=== PATIENT | male | born 1980 | race African-American/Black ===

== ENCOUNTER 2016-11-28 20:02 | Inpatient (IN) | payer SELFPAY ==
[~2016-11-28] VITALS: Ht 162.6 cm; Wt 65.3 kg
[2016-11-28 20:43] LABS: BASOPHILS 0.7 % (0-2); EOSINOPHILS 0.2 % (0-7); HEMATOCRIT 35.5 % (42.0-54.0); HEMOGLOBIN 12.8 g/dL (13.5-17.5); IMMATURE GRANULOCYTES 7.1 % (0-5); LYMPHOCYTES 8.7 % (15-50); MCH 26.8 pg (26.0-34.0); MCHC 36.1 g/dL (31.0-37.0); MCV 74.4 fL (80.0-100.0); MONOCYTES 6.3 % (2-11); PLATELET COUNT 56 10x3/uL (130-400); RBC 4.77 10x6/uL (4.20-6.10); RDW 15.4 % (11.5-14.5); WBC 14.2 10x3/uL (4.8-10.8)
[2016-11-28 20:58] LABS: ALBUMIN 4.3 g/dL (3.4-5.0); ALKALINE PHOSPHATASE 78 U/L (46-116); ALT (SGPT) 39 U/L (10-68); CALC OSMOLALITY 279 mosm/kg (275-300); CALCIUM 8.9 mg/dL (8.5-10.1); CARBON DIOXIDE 24.5 mmol/L (21.0-32.0); CHLORIDE - SERUM 102 mmol/L (98-107); CREATININE - SERUM 0.8 mg/dL (0.6-1.3); GLUCOSE 130 mg/dL (74-106); POTASSIUM - SERUM 3.7 mmol/L (3.5-5.1); PROTEIN - SERUM 7.7 g/dL (6.4-8.2); SODIUM 139 mmol/L (136-145); UREA NITROGEN 13 mg/dL (7-18); eGFR NON AFRICAN AMERICAN > 90 mL/min (90-120)
[2016-11-28 21:08] LABS: CKMB 0.3 U/L (0.0-3.6); CREATINE KINASE 126 UL (21-232); TROPONIN-I 0.029 ng/mL (0.000-0.060)
[2016-11-28 21:17] LABS: PLATELET ESTIMATE DECREASED
[2016-11-28 21:18] LABS: C-REACTIVE PROTEIN 0.5 mg/dL (0.0-0.9)
[2016-11-28 21:48] LABS: APPEARANCE CLEAR (CLEAR); BILIRUBIN NEGATIVE (NEGATIVE); COLOR YELLOW (YELLOW); GLUCOSE NEGATIVE (NEGATIVE); KETONE NEGATIVE (NEGATIVE); LEUKOCYTE ESTERASE NEGATIVE (NEGATIVE); NITRITE NEGATIVE (NEGATIVE); PROTEIN TRACE mg/dL (NEGATIVE); SPECIFIC GRAVITY 1.015 (1.005-1.020); UROBILINOGEN NORMAL (NORMAL)
[2016-11-28 21:52] LABS: UDS - AMPHET NEGATIVE QUAL (NEGATIVE); UDS - BARB NEGATIVE QUAL (NEGATIVE); UDS - BENZO NEGATIVE QUAL (NEGATIVE); UDS - COCAINE NEGATIVE QUAL (NEGATIVE); UDS - METH NEGATIVE QUAL (NEGATIVE); UDS - OPIATE NEGATIVE QUAL (NEGATIVE); UDS - PCP NEGATIVE QUAL (NEGATIVE); UDS - THC POSITIVE QUAL (NEGATIVE)
[2016-11-28 21:54] LABS: BACTERIA FEW /hpf (NONE SEEN); EPITHELIAL CELLS OCC /hpf (0-5); MUCUS <1+ /lpf (NONE SEEN); RED CELLS - URINE 0-5 /hpf (0-5); WHITE CELLS - URINE OCC /hpf (0-5)
[2016-11-28 21:55] LABS: HYALINE CAST OCC /lpf (NONE SEEN); WAXY CAST RARE /lpf (NONE SEEN)
[2016-11-28 22:24] LABS: INR 1.24 (0.85-1.17); PROTIME 15.5 SECONDS (11.6-15.0)
[2016-11-28 22:40] LABS: D-DIMER-QUANTITATIVE 17.53 ug/mLFEU (0.20-0.54)
--- NOTE | 2016-11-29 02:15 | NUR ---
REC FROM ER VIA STRETCHER. TRANSFERED HIMSELF FROM STRETCHER TO BED WITHOUT ASSISTANCE. ALERT/ORIENTED X 4. DENIES PAIN. MORPHINE ADMINISTER IN ER FOR CHEST PAIN. HE IS SLIGHTLY DROWSY, BUT ABLE TO ANSWER QUESTIONS. IV IN L HAND WITH NS INFUSING STARTED IN ER. TELEMETRY ORDERED. REQUESTED A SANDWICH AND SODA. ORIENTED TO ROOM AND CALL LIGHT. A FRIEND IS PRESENT WITH HIM.
[2016-11-29 03:18] VITALS: BP 171/107; BMI 24.8
--- NOTE | 2016-11-29 03:46 | NUR ---
INFORMED DR MILLS VIA PHONE RE: PATIENT'S ELEVATED B/P 171/101. STATED HE WILL TX IN THE MORNING.
[2016-11-29 05:55] VITALS: BP 171/105
--- NOTE | 2016-11-29 06:27 | NUR ---
RESTING WITH EYES CLOSED. NO S/S OF PAIN OR DISCOMFORT. HAS A ROUND SOFT LUMP ON LEFT SIDE OF FOREHEAD APPROX 3 CM X 3 CM. STATED EARLIER THAT IT COMES AND GOES AND IS NOT PAINFUL.
[2016-11-29 07:05] LABS: BASOPHILS 0.4 % (0-2); EOSINOPHILS 0.4 % (0-7); HEMOGLOBIN 11.9 g/dL (13.5-17.5); IMMATURE GRANULOCYTES 4.8 % (0-5); LYMPHOCYTES 14.7 % (15-50); MCH 26.8 pg (26.0-34.0); MCHC 36.1 g/dL (31.0-37.0); MCV 74.3 fL (80.0-100.0); MONOCYTES 5.9 % (2-11); NEUTROPHILS 73.8 % (40-80); RBC 4.44 10x6/uL (4.20-6.10); RDW 15.2 % (11.5-14.5)
[2016-11-29 07:10] LABS: WBC 6.7 10x3/uL (4.8-10.8)
[2016-11-29 07:12] LABS: PLATELET COUNT 41 10x3/uL (130-400)
[2016-11-29 07:26] LABS: ALBUMIN 3.5 g/dL (3.4-5.0); ALKALINE PHOSPHATASE 74 U/L (46-116); ALT (SGPT) 42 U/L (10-68); CALC OSMOLALITY 270 mosm/kg (275-300); CALCIUM 8.3 mg/dL (8.5-10.1); CARBON DIOXIDE 26.8 mmol/L (21.0-32.0); CHLORIDE - SERUM 102 mmol/L (98-107); CREATINE KINASE 85 UL (21-232); GLUCOSE 113 mg/dL (74-106); POTASSIUM - SERUM 3.8 mmol/L (3.5-5.1); PROTEIN - SERUM 6.8 g/dL (6.4-8.2); SODIUM 135 mmol/L (136-145); TROPONIN-I 0.039 ng/mL (0.000-0.060); UREA NITROGEN 12 mg/dL (7-18); eGFR NON AFRICAN AMERICAN 89 mL/min (90-120)
[2016-11-29 08:00] VITALS: BP 170/103
[2016-11-29 08:12] LABS: ERYTHROCYTE SEDIMENTATION RATE 2 mm/hr (0-15)
--- NOTE | 2016-11-29 09:17 | NUR ---
TELEMETRY SR. IV PATENT. NPO FOR US AND CT ABD. CALL LIGHT IN REACT. WILL MONITOR NEEDS.
--- NOTE | 2016-11-29 10:58 | NUR ---
CT AND US ABD COMPLETED. WILL MONITOR.
[2016-11-29 12:38] VITALS: BP 158/98
[2016-11-29 16:33] VITALS: BP 158/98
--- NOTE | 2016-11-29 19:00 | NUR ---
INITIAL ROUNDS MADE. PT SITTING UP IN BED WATCHING TV. NO NEEDS OR C/O AT THIS TIME. REQUESTED AND GIVEN APPLE JUICE. WILL CONT TO MONITOR.
[2016-11-29 21:30] VITALS: BP 162/98
[2016-11-30 02:21] VITALS: BP 151/91
[2016-11-30 05:57] LABS: BASOPHILS 0.2 % (0-2); EOSINOPHILS 0.6 % (0-7); HEMOGLOBIN 10.7 g/dL (13.5-17.5); IMMATURE GRANULOCYTES 1.8 % (0-5); LYMPHOCYTES 26.6 % (15-50); MCH 26.5 pg (26.0-34.0); MCHC 35.7 g/dL (31.0-37.0); MCV 74.3 fL (80.0-100.0); MONOCYTES 6.5 % (2-11); NEUTROPHILS 64.3 % (40-80); RBC 4.04 10x6/uL (4.20-6.10); RDW 15.2 % (11.5-14.5); WBC 5.1 10x3/uL (4.8-10.8)
[2016-11-30 06:04] LABS: PLATELET COUNT 23 10x3/uL (130-400)
[2016-11-30 06:28] LABS: ALBUMIN 3.3 g/dL (3.4-5.0); ALKALINE PHOSPHATASE 63 U/L (46-116); ALT (SGPT) 34 U/L (10-68); BILIRUBIN - TOTAL 1.11 mg/dL (0.2-1.3); CALC OSMOLALITY 279 mosm/kg (275-300); CALCIUM 8.5 mg/dL (8.5-10.1); CARBON DIOXIDE 24.7 mmol/L (21.0-32.0); CHLORIDE - SERUM 107 mmol/L (98-107); CREATININE - SERUM 0.8 mg/dL (0.6-1.3); GLUCOSE 94 mg/dL (74-106); POTASSIUM - SERUM 3.8 mmol/L (3.5-5.1); PROTEIN - SERUM 6.5 g/dL (6.4-8.2); SODIUM 141 mmol/L (136-145); UREA NITROGEN 9 mg/dL (7-18); eGFR NON AFRICAN AMERICAN > 90 mL/min (90-120)
[2016-11-30 06:34] VITALS: BP 153/86
[2016-11-30 08:14] VITALS: BP 145/98
--- NOTE | 2016-11-30 10:35 | NUR ---
TELEMETRY SR. RESTS IN BED WITH EYES CLOSED. IV PATENT. CALL LIGHT IN REACH. WILL CONT. PLAN OF CARE.
[2016-11-30 11:02] VITALS: Ht 162.6 cm; Wt 65.3 kg
[2016-11-30 12:00] VITALS: BP 146/93
--- NOTE | 2016-11-30 13:50 | NUR ---
SCDS ORDERED FOR PT AND APPLIED BILAT. PT IS AMBULATORY BUT STATES "YES ID LIKE TO WEAR THEM" NO FURTHER NEEDS. WILL CTM.
[2016-11-30 16:00] VITALS: BP 154/98
--- NOTE | 2016-11-30 19:00 | NUR ---
INITIAL ROUNDS MADE. PT SITTING UP IN BED WATCHING TV WITH FAMILY IN ROOM. DENIES NEEDS OR C/O AT THIS TIME. CALL LIGHT IN REACH. WILL CONT TO MONITOR.
[2016-11-30 20:39] VITALS: BP 156/85
--- NOTE | 2016-11-30 20:59 | NUR ---
HS MEDS GIVEN WTHOUT DIFFICULTY. CONT TO MONITOR.
[2016-12-01 00:47] VITALS: BP 124/79
[2016-12-01 04:56] VITALS: BP 142/75
[2016-12-01 05:54] LABS: BASOPHILS 0 % (0-2); EOSINOPHILS 0 % (0-7); HEMATOCRIT 31.3 % (42.0-54.0); HEMOGLOBIN 11.6 g/dL (13.5-17.5); IMMATURE GRANULOCYTES 1.5 % (0-5); LYMPHOCYTES 19.6 % (15-50); MCH 27.2 pg (26.0-34.0); MCHC 37.1 g/dL (31.0-37.0); MCV 73.3 fL (80.0-100.0); MONOCYTES 5.1 % (2-11); NEUTROPHILS 73.8 % (40-80); RBC 4.27 10x6/uL (4.20-6.10); RDW 15.3 % (11.5-14.5); WBC 3.9 10x3/uL (4.8-10.8)
[2016-12-01 06:15] LABS: ALBUMIN 3.7 g/dL (3.4-5.0); ALKALINE PHOSPHATASE 64 U/L (46-116); BILIRUBIN - TOTAL 1.07 mg/dL (0.2-1.3); CALCIUM 9.3 mg/dL (8.5-10.1); CHLORIDE - SERUM 104 mmol/L (98-107); CREATININE - SERUM 0.7 mg/dL (0.6-1.3); POTASSIUM - SERUM 4.2 mmol/L (3.5-5.1); PROTEIN - SERUM 7.4 g/dL (6.4-8.2); SODIUM 139 mmol/L (136-145); eGFR NON AFRICAN AMERICAN > 90 mL/min (90-120)
[2016-12-01 06:18] LABS: ALT (SGPT) 25 U/L (10-68); CALC OSMOLALITY 281 mosm/kg (275-300); GLUCOSE 155 mg/dL (74-106); UREA NITROGEN 16 mg/dL (7-18)
--- NOTE | 2016-12-01 06:25 | NUR ---
LYING IN BED RESTING WELL WITH EYES CLOSED, CALL LIGHT IN REACH. WILL CONT TO MONITOR.
[2016-12-01 06:28] LABS: PLATELET COUNT 30 10x3/uL (130-400)
[2016-12-01 08:57] VITALS: BP 161/95
[2016-12-01 09:17] LABS: HAPTOGLOBIN <10 mg/dL (34-200)
--- NOTE | 2016-12-01 10:52 | NUR ---
TELEMETRY SR. NO NEEDS VOICED. CALL LIGHT IN REACH. WILL CONT. PLAN OF CARE.
[2016-12-01 12:00] VITALS: BP 136/89
[2016-12-01 13:21] LABS: HEPATITIS C ANTIBODY 0.1 (0.0-0.9)
[2016-12-01 16:00] VITALS: BP 159/80
--- NOTE | 2016-12-01 19:42 | NUR ---
RESUMED CARE OF PT, LYING IN BED RESPIRATIONS EVEN AND UNLABORED ON ROOMA IR. 71 SR ON TELEMETRY. LEFT HAND SALINE LOCKED. CALL LIGHT IN REACH. NO NEEDS NOTED AT THIS TIME, WILL CONTINUE TO MONITOR. SEE NURSE ASSESSMENT.
[2016-12-01 20:00] VITALS: BP 154/88
[2016-12-02] VITALS: BP 169/97
[2016-12-02 04:00] VITALS: BP 133/78
[2016-12-02 05:39] LABS: BASOPHILS 0.2 % (0-2); EOSINOPHILS 0.2 % (0-7); HEMATOCRIT 31.2 % (42.0-54.0); HEMOGLOBIN 11.3 g/dL (13.5-17.5); IMMATURE GRANULOCYTES 0.9 % (0-5); LYMPHOCYTES 20.1 % (15-50); MCH 26.7 pg (26.0-34.0); MCHC 36.2 g/dL (31.0-37.0); MCV 73.6 fL (80.0-100.0); MONOCYTES 5.5 % (2-11); NEUTROPHILS 73.1 % (40-80); RBC 4.24 10x6/uL (4.20-6.10); RDW 15.1 % (11.5-14.5)
[2016-12-02 05:40] LABS: PLATELET COUNT 39 10x3/uL (130-400)
[2016-12-02 05:59] LABS: ALBUMIN 3.7 g/dL (3.4-5.0); ALKALINE PHOSPHATASE 57 U/L (46-116); ALT (SGPT) 28 U/L (10-68); BILIRUBIN - TOTAL 0.99 mg/dL (0.2-1.3); CALC OSMOLALITY 281 mosm/kg (275-300); CALCIUM 9.4 mg/dL (8.5-10.1); CARBON DIOXIDE 27.8 mmol/L (21.0-32.0); CHLORIDE - SERUM 104 mmol/L (98-107); CREATININE - SERUM 0.8 mg/dL (0.6-1.3); GLUCOSE 128 mg/dL (74-106); POTASSIUM - SERUM 4.2 mmol/L (3.5-5.1); PROTEIN - SERUM 7.2 g/dL (6.4-8.2); SODIUM 139 mmol/L (136-145); UREA NITROGEN 17 mg/dL (7-18); eGFR NON AFRICAN AMERICAN > 90 mL/min (90-120)
--- NOTE | 2016-12-02 06:36 | NUR ---
NO CHANGES FROM PREVIOUS ASSESSMENT, CALL LIGHT IN REACH.
--- NOTE | 2016-12-02 07:36 | NUR ---
ASSESSMENT COMPLETED. TELEMERTY SHOWS SB WITH A HEARTATE OF 50. ON ROOM AIR WITH. SL TO LEFT HAND, PATENT. SR UP WITH CALL LIGHT IN REACH WILL MONITOR
[2016-12-02 07:53] VITALS: BP 142/87
[2016-12-02 11:19] LABS: ANGIOTENSIN CONVERTING ENZYME 46 U/L (14-82)
--- NOTE | 2016-12-02 11:38 | NUR ---
PATIENT IN STREET CLOTHES LAYING ON THE BED. STATES THAT HE IS FOR A BONE MARROW BX TODAY AROUND 3. ON HEART MONITOR SHOWING SR, HR 70. DENIES ANY CHEST PAIN OR SHORTNESS OF BREATH.
[2016-12-02 11:51] VITALS: BP 138/83
--- NOTE | 2016-12-02 13:42 | NUR ---
Nutrition follow-up: Diet: Regular PO intake 100% of most meals Labs reviewed Wt: 143# RDN following.
--- NOTE | 2016-12-02 15:30 | NUR ---
AWAITING TEST. DENIES ANY NEEDS. CALL LIGHTIN REACH WITH SR UP
[2016-12-02 15:37] VITALS: BP 151/97
[2016-12-02 16:19] LABS: HGB - A2 5.2 % (0.7-3.1); HGB - C 45.3 % (0.0); HGB - INTERPRETATION Note: (()); HGB - S 49.5 % (0.0); HGB - SOLUBILITY Positive (Negative)
[2016-12-02 19:00] VITALS: BP 173/101
--- NOTE | 2016-12-02 19:40 | NUR ---
RESUMED CARE OF PT, LYING IN BED RESPIRATIONS EVEN AND UNLABORED ON ROOM AIR. 69 SR ON TELEMETRY, NO NEEDS VOICED AT THIS TIME. CALL LIGHT IN REACH. WILL CONTINUE TO MONITOR. SEE NURSE ASSESSMENT.
--- NOTE | 2016-12-02 22:21 | NUR ---
DR. MILLS PAGED FOR PAIN MEDICATION FOR RIGHT HIP. AWAITING CALL BACK.
--- NOTE | 2016-12-03 01:01 | NUR ---
CALL LIGHT IN REACH, WILL CONTINUE WITH PLAN OF CARE.
[2016-12-03 04:00] VITALS: BP 144/80
[2016-12-03 06:06] LABS: BASOPHILS 0.2 % (0-2); EOSINOPHILS 0.3 % (0-7); HEMATOCRIT 33.7 % (42.0-54.0); HEMOGLOBIN 12.3 g/dL (13.5-17.5); IMMATURE GRANULOCYTES 1.2 % (0-5); LYMPHOCYTES 26.9 % (15-50); MCH 26.7 pg (26.0-34.0); MCHC 36.5 g/dL (31.0-37.0); MCV 73.1 fL (80.0-100.0); NEUTROPHILS 62.4 % (40-80); RBC 4.61 10x6/uL (4.20-6.10); RDW 15.2 % (11.5-14.5); WBC 10.1 10x3/uL (4.8-10.8)
[2016-12-03 06:14] LABS: ALKALINE PHOSPHATASE 62 U/L (46-116); ALT (SGPT) 31 U/L (10-68); CALC OSMOLALITY 280 mosm/kg (275-300); CALCIUM 9.3 mg/dL (8.5-10.1); CARBON DIOXIDE 27.6 mmol/L (21.0-32.0); CHLORIDE - SERUM 101 mmol/L (98-107); CREATININE - SERUM 0.9 mg/dL (0.6-1.3); GLUCOSE 96 mg/dL (74-106); PLATELET COUNT 42 10x3/uL (130-400); PROTEIN - SERUM 7.6 g/dL (6.4-8.2); SODIUM 140 mmol/L (136-145); UREA NITROGEN 17 mg/dL (7-18); eGFR NON AFRICAN AMERICAN > 90 mL/min (90-120)
--- NOTE | 2016-12-03 07:13 | NUR ---
NO CHANGES FROM PREVIOUS ASSESSMENT, CALL LIGHT IN REACH.
--- NOTE | 2016-12-03 07:34 | NUR ---
ASSESSMENT COMPLETED. TELEMERTY SHOWS SB AT 58. RIGHT HIP WITH DRSG DRY AND INTACT AT BONE MARROW SITE. DENIES ANY NEEDS. CALL LIGHT IN REACH WITH SR UP.
[2016-12-03 07:56] VITALS: BP 145/92
--- NOTE | 2016-12-03 10:27 | NUR ---
ON HEART MONITOR SHOWING SB, RIGHT HIP WITH SMALL MEPILEX SEEN FROM BONE BX YESTERDAY. SALINE LOCK TO LEFT HAND.
--- NOTE | 2016-12-03 10:34 | NUR ---
UP IN ROOM. GAIT STEADY. CALL LIGHT IN REACH
--- NOTE | 2016-12-03 10:48 | NUR ---
Patient Name: ANTIONE HOWARD Admission Status: ER Accout number: [id number] Admission Date: 11-29-2016 : 1980 Admission Diagnosis:ESSENTIAL (PRIMARY) HYPERTENSION Attending: FLAVIO Current LOS: 4 Anticipated DC Date: 12-03-2016 Planned Disposition: Home Primary Insurance: UNINSURED DISCOUNT PLAN Discharge Planning Comments: * Is the patient Alert and Oriented? Yes 0 * How many steps to enter\\exit or inside your home? 4 0 * PCP NONE 0 * [facility]acy [facility] 0 * Preadmission Environment Home with Family 0 * ADLs Independent 0 * Equipment None 0 * Other Equipment NO MEDICAL EQUIPMENT PROVIDER PREFERENCE 0 * List name and contact numbers for known caregivers / representatives who currently or will assist patient after discharge: JATIN BHARDWAJ, SISTER, 0 * Community resources currently utilized None 0 * Please name any agencies selected above. NONE 0 * Additional services required to return to the preadmission environment? No 0 * Can the patient safely return to the preadmission environment? Yes 0 * Has this patient been hospitalized within the prior 30 days at any hospital? No 0 CM MET WITH PT IN ROOM TO DISCUSS DISCHARGE PLANNING AND NEEDS. PT REPORTS LIVING AT HOME INDEPENDENTLY WITH HIS "BABY MOMMA". PT HAS NO MEDICAL EQUIPMENT AND NO OUTSIDE SERVICES ASSISTING IN THE HOME. CM DISCUSSED AVAILABILITY OF HOME HEALTH, REHAB SERVICES AND MEDICAL EQUIPMENT. PT DENIES DISCHARGE NEEDS, REPORTS HIS FAMILY WILL PICK HIM UP FOR DISCHARGE HOME. PT REPORTS HE IS READY TO GO HOME NOW. PT HAS APPLIED FOR MEDICAID THROUGH THE HOSPITAL DURING THIS STAY. CM PROVIDED AND DISCUSSED [facility] INFORMATION FOR ASSISTANCE IN POSSIBLE PRIMARY CARE FOR PATIENT. Claims Adjuster Crop: Edil Chapman
[2016-12-03 11:55] VITALS: BP 151/87
[2016-12-03] MEDS ORDERED: NORVASC10 MG PO (13:21)
[2016-12-03] MEDS ORDERED: PREDNISONE20 MG PO (13:22)
--- NOTE | 2016-12-03 15:40 | NUR ---
PT DISCHARGED. IV DC'D WITH TIP INTACT. INSTRUCTIONS GIVEN TO PT. TO PRIVATE CAR PER WHEELCHAIR
== END 2016-12-03 15:41 | disposition home or self-care (01) | DRG 813 ==
LOC: D.ER 20:02 → D.M2 11-29 01:43 → D.SDCHOLD 11-29 14:22 → D.M2 11-29 14:24
PROVIDERS: Family Medicine; Legal Medicine; Nurse Practitioner Family; ADMIT Family Medicine
PROC: 07DR3ZX Extraction of Iliac Bone Marrow, Percutaneous Approach, Diagnostic (ICD-10-PCS; principal; 2016-12-02)
DX: D69.6 Thrombocytopenia, unspecified (principal); R16.2 Hepatomegaly with splenomegaly, not elsewhere classified; D64.9 Anemia, unspecified; I10 Essential (primary) hypertension; D57.1 Sickle-cell disease without crisis; Z72.0 Tobacco use

== ENCOUNTER → 2017-03-14 11:45 | Outpatient (CLI) | payer OTHER ==
[2016-11-30 11:02] VITALS: BMI 24.7
[~2017-03-14 11:45] MED LIST: NORVASC10 MG PO; PREDNISONE20 MG PO
== END | disposition home or self-care (01) ==
LOC: D.MRI 11:30
DX: M54.2 Cervicalgia (principal)

== ENCOUNTER 2017-04-04 07:31 | Emergency (ER) | payer OTHER ==
[2016-11-30 11:02] VITALS: BMI 24.7
[2017-04-04 08:46] LABS: BASOPHILS 0.2 % (0-2); EOSINOPHILS 0.6 % (0-7); HEMATOCRIT 36.1 % (42.0-54.0); LYMPHOCYTES 12.1 % (15-50); MCH 28.1 pg (26.0-34.0); MCV 78.1 fL (80.0-100.0); MEAN PLATELET VOLUME 10.9 fL (7.4-10.4); MONOCYTES 8.5 % (2-11); NEUTROPHILS 77.6 % (40-80); RBC 4.62 10x6/uL (4.20-6.10); RDW 14.5 % (11.5-14.5); WBC 8.9 10x3/uL (4.8-10.8)
[2017-04-04 09:09] LABS: PLATELET COUNT 92 10x3/uL (130-400)
== END 2017-04-04 11:50 | disposition home or self-care (01) ==
LOC: D.ER 07:31
PROVIDERS: Emergency Medicine
DX: M79.605 Pain in left leg (principal); M79.604 Pain in right leg; D57.00 Hb-SS disease with crisis, unspecified; F17.200 Nicotine dependence, unspecified, uncomplicated

== ENCOUNTER 2017-04-05 11:25 | Inpatient (IN) | payer OTHER ==
[2017-04-05 12:16] VITALS: BP 147/98
--- NOTE | 2017-04-05 12:16 | NUR ---
20G IV SITED TO PT'S LEFT WRIST X1 ATTEMPT. RECEIVED TO ROOM [address] OFF[address] VIA WHEELCHAIR. ASSISTED TO BED AND ORIENTED TO ROOM. CALL LIGHT IN REACH, WILL CONTINUE WITH PLAN OF CARE.
[2017-04-05 12:34] VITALS: BMI 24.0
[2017-04-05 12:42] LABS: BASOPHILS 0.1 % (0-2); HEMATOCRIT 33.7 % (42.0-54.0); HEMOGLOBIN 12.5 g/dL (13.5-17.5); IMMATURE GRANULOCYTES 0.7 % (0-5); LYMPHOCYTES 16.2 % (15-50); MCH 28.8 pg (26.0-34.0); MCHC 37.1 g/dL (31.0-37.0); MCV 77.6 fL (80.0-100.0); MEAN PLATELET VOLUME 11.4 fL (7.4-10.4); MONOCYTES 13.2 % (2-11); NEUTROPHILS 68.8 % (40-80); PLATELET COUNT 101 10x3/uL (130-400); RBC 4.34 10x6/uL (4.20-6.10); RDW 14.4 % (11.5-14.5); WBC 8.1 10x3/uL (4.8-10.8)
[2017-04-05 13:02] LABS: ALBUMIN 3.6 g/dL (3.4-5.0); ALKALINE PHOSPHATASE 73 U/L (46-116); ALT (SGPT) 35 U/L (10-68); BILIRUBIN - TOTAL 0.86 mg/dL (0.2-1.3); CALC OSMOLALITY 280 mosm/kg (275-300); CALCIUM 8.9 mg/dL (8.5-10.1); CARBON DIOXIDE 28.3 mmol/L (21.0-32.0); CHLORIDE - SERUM 104 mmol/L (98-107); CREATININE - SERUM 0.8 mg/dL (0.6-1.3); GLUCOSE 117 mg/dL (74-106); LDH 246 U/L (85-227); POTASSIUM - SERUM 3.6 mmol/L (3.5-5.1); SODIUM 141 mmol/L (136-145); UREA NITROGEN 9 mg/dL (7-18); eGFR NON AFRICAN AMERICAN > 90 mL/min (90-120)
[2017-04-05 16:12] VITALS: BP 116/76
[2017-04-05 19:30] VITALS: BP 144/93
[2017-04-05 23:30] VITALS: BP 124/61
--- NOTE | 2017-04-06 03:11 | NUR ---
PT RESTING WITH EYES CLOSED. NO DISTRESS NOTED AT THIS TIME.
[2017-04-06 03:30] VITALS: BP 154/99
--- NOTE | 2017-04-06 07:38 | NUR ---
SLEEPING, AROUSES TO VOICE, NO DISTRESS NOTED, DENIES NEEDS, CALL LIGHT IN REACH, BED LOWEST POSITION, WILL CONTINUE TO MONITOR
[2017-04-06 08:10] VITALS: BP 142/88
--- NOTE | 2017-04-06 10:46 | NUR ---
PT COMPLAINS OF NUMBNESS TO THE BALL OF HIS RIGHT FOOT, DR GONZALEZ NOTIFIED, DR PATEL HE WILL BE OVER TO CHECK HIM
--- NOTE | 2017-04-06 10:58 | NUR ---
Patient Name: ANTIONE HOWARD Admission Status: Elective Accout number: [id number] Admission Date: 04-05-2017 : 1980 Admission Diagnosis: Attending: YAS GONZALEZ Current LOS: 1 Anticipated DC Date: 04-08-2017 Planned Disposition: Home Primary Insurance: [employer]ED [employer]ICAID Discharge Planning Comments: CM MET WITH PATIENT REGARDING D/C NEEDS AND PLANS. PATIENT STATED HE LIVES ALONE AND HIS FAMILY WILL DRIVE HIM HOME AT DISCHARGE. PATIENT STATED HE HAS NO STEPS OR STAIRS TO AT HIS HOME. PATIENT STATED HE IS INDEPENDENT WITH HER CARE AND HAS NO DME AT HOME. PATIENTS PCP IS DR. GONZALEZ AND PHARMACY IS [facility]. PATIENT DOES NOT WANT HOME HEALTH AT THIS TIME. CM WILL CONTINUE TO FOLLOW PATIENT WITH D/C NEEDS AND PLANS. PCP DR. CARLOS SWENSON [facility]- [phone] EMMANUEL (FAMILY) [phone] Commercial Sheet Metal Foreman: Kassidy Samson Is the patient Alert and Oriented? Yes 0 * How many steps to enter\exit or inside your home? 0 0 * PCP DR. GONZALEZ 0 * Pharmacy [facility] 0 * Preadmission Environment Home Alone 0 * ADLs Independent 0 * Equipment None 0 * List name and contact numbers for known caregivers / representatives who currently or will assist patient after discharge: EMMANUEL (FAMILY) [phone] 0 * Community resources currently utilized None 0 * Additional services required to return to the preadmission environment? Yes 0 * Can the patient safely return to the preadmission environment? Yes 0 * Has this patient been hospitalized within the prior 30 days at any hospital? No 0 Grand Total: 0
--- NOTE | 2017-04-06 11:45 | NUR ---
AWAKE AND ALERT WITH RESPIRATIONS EVEN AND NON LABORED. AUTO GARAGE ATTENDANT IN USE FOR PAIN. CALL LIGHT IN REACH, WILL CONTINUE WITH PLAN OF CARE.
[2017-04-06 12:11] VITALS: BP 168/93
--- NOTE | 2017-04-06 12:26 | NUR ---
SITTING UP EATING LUNCH, DENIES NEEDS, CALL LIGHT IN REACH, WILL CONTINUE TO MONITOR
[2017-04-06 17:43] VITALS: BP 143/86
[2017-04-06 19:30] VITALS: BP 154/83
--- NOTE | 2017-04-06 19:58 | NUR ---
PT IS LYING IN BED VISITING WITH FAMILY, CALL LIGHT IN REACH, PT VERBALIZED NO NEEDS AT THIS TIME
[2017-04-06 20:58] LABS: APPEARANCE CLEAR (CLEAR); BILIRUBIN NEGATIVE (NEGATIVE); COLOR YELLOW (YELLOW); GLUCOSE NEGATIVE (NEGATIVE); KETONE NEGATIVE (NEGATIVE); NITRITE NEGATIVE (NEGATIVE); PROTEIN NEGATIVE (NEGATIVE); UROBILINOGEN NORMAL (NORMAL)
[2017-04-06 23:30] VITALS: BP 168/84
[2017-04-07 04:00] VITALS: BP 146/88
--- NOTE | 2017-04-07 04:43 | NUR ---
EYES CLOSED RESPIRATIONS WITH EASE AND UNLABORED. SR UP X2 CALL LIGHT WITHIN REACH.
[2017-04-07 09:22] VITALS: BP 133/92
[2017-04-07 12:39] VITALS: BP 131/76
[2017-04-07 15:59] VITALS: BP 149/91
--- NOTE | 2017-04-07 19:45 | NUR ---
MP NICHOLE CAME OUT OF PT'S ROOM STATED PT'S BLOOD PRESSURE IS 165/102 ON LEFT ARM AND 187/134 ON RT ARM, DR GONZALEZ IS PT'S DR, CAME IN LATE EVENING YESTERDAY WILL WAIT A MINUTE TO SEE IF HE COMES IN BEFORE CALLING
[2017-04-07 20:00] VITALS: BP 165/102
[2017-04-08] VITALS: BP 151/110
--- NOTE | 2017-04-08 03:15 | NUR ---
PATIENT IS AWAKE, ALERT AND ORIENTED X'S 4. RESPIRATIONS ARE EVEN AND UNLABORED. NO SIGNS OF DISTRESS NOTED.
[2017-04-08 04:00] VITALS: BP 153/69
[2017-04-08 08:50] VITALS: BP 132/79
--- NOTE | 2017-04-08 09:04 | NUR ---
REC'D IN BED AWAKE AND ALERT. RESP EVEN AND UNLABORED WITH NO DISTRESS NOTED, CAN EXPRESS NEEDS AND WANTS. NO C/O NOTED OR VOICE AT THIS TIME. TURN AND REPOSITION SELF AB VITA. ASSESSMENT COMPLETED. C/L I REACH AT BEDSIDE.
--- NOTE | 2017-04-08 10:51 | NUR ---
PT WAS VACCINATED WITH FLU VACCINE AT THIS TIME TO LEFT DELTOID. TOLERATED WELL.
--- NOTE | 2017-04-08 11:35 | NUR ---
PT WAS D/C AT THIS TIME HOME WITH PERSONAL BELONGING AND D/C INSTRUCTION. HE VOICED UNDERSTANDING AND WAS IN STABLE CONDITION UPON DEPARTURE.
--- NOTE | 2017-04-08 11:49 | NUR ---
CM REASSESSMENT NOTE: PATIENT D/C HOME / NO NEEDS/ FRIEND DRIVING/ REF. HH
[2017-04-11 07:09] LABS: HGB - A2 5.5 % (0.7-3.1); HGB - C 44.9 % (0.0); HGB - INTERPRETATION Note: (()); HGB - S 49.6 % (0.0); HGB - SOLUBILITY Positive (Negative)
== END 2017-04-08 11:37 | disposition home or self-care (01) | DRG 812 ==
LOC: D.MS 11:25
PROVIDERS: ADMIT Legal Medicine
DX: D57.00 Hb-SS disease with crisis, unspecified (principal); R16.1 Splenomegaly, not elsewhere classified; I10 Essential (primary) hypertension; D69.6 Thrombocytopenia, unspecified; D64.9 Anemia, unspecified